=== PATIENT | female | born 2000 | race Caucasian/White ===

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

== ENCOUNTER → 2021-01-15 14:43 | Outpatient (BNVA) | payer MEDICAID, SELFPAY | PROVIDERS: Visit Provider Nurse Practitioner Family | DX: Z20.822 Contact with and (suspected) exposure to COVID-19 (principal) | CPT/HCPCS: 87635 ==

== ENCOUNTER 2025-05-12 08:08 | Emergency (ER) | payer MEDICAID, SELFPAY ==
[2025-05-12 08:15] VITALS: BP 126/61; PULSE 85; RESP 16; TEMP 36.7; O2SAT 100; BMI 24.7
--- OUTSIDE RECORDS SUMMARY | 2025-05-12 08:16 | XMS_ITS | Clinical Summary ---
Author Organization [facility] Address [address] Jeter: Epic Prelude ADT [place] [address] Care Team Providers Care Commercial Installer Name Role Phone Marissa Cespedes Karoline FIGUEREDO Primary Care Provider Allergies No known active allergies Medications desogestreL-ethi nyl estradioL (ORTHO-CEPT) 0.15-0.03 mg Tablet Take 1 Tablet by mouth daily. 10/17/2019 Active ibuprofen (MOTRIN) 200 mg tablet Take 400 mg by mouth every 6 hours as needed for Pain, Mild. 11/08/2019 Active ondansetron (ZOFRAN ODT) 4 mg Tablet, Rapid Dissolve Place 1 Tablet (4 mg) under tongue every 8 hours as needed for Nausea. 16 Tablet 1 11/09/2019 Active HYDROcodone-acet aminophen (HYCET) 7.5-325 mg/15 mL SolutionIndicati ons:Tonsil stone,Sleep-diso rdered breathing,Tonsil lar hypertrophy,Snor ing Take 10-12 mL by mouth every 4 hours as needed for Pain. Max Daily Amount: 72 mL 473 mL 0 11/09/2019 Active multivitamin (DAILY-LUDY) tablet Take 1 Tablet by mouth daily. 09/27/2019 Active Active Problems Problem Noted Date Diagnosed Date Tonsil stone 10/17/2019 Tonsillar hypertrophy 10/17/2019 Sleep-disordered breathing 10/17/2019 Snoring 10/17/2019 Immunizations Immunization Administration Dates Next Due Influenza Seasonal Unspecified Formulation IM Family History Medical History Relation Name Comments Healthy Father Healthy Mother Relation Name Status Comments Father Mother Social History Tobacco Use Types Packs/Day Years Used Date Smoking Tobacco: Passive Smo ke Exposure - Never Smoker Smokeless Tobacco: Never Alcohol Use Standard Drinks/Week Comments No 0 (1 standard drink = 0.6 oz pur e alcohol) Comments Unknown Sex and Gender Information Value Date Recorded Sex Assigned at Not on file Legal Sex Female 1:11 AM [employer] Gender Identity Not on file Sexual Orientation Not on file Last Filed Vital Signs Vital Sign Reading Time Taken Comments Blood Pressure 112/68 11/09/2019 10:00 AM CDT Pulse 77 11/09/2019 10:00 AM CDT Temperature 36.3 C (97.4 F) 11/09/2019 9:26 AM CDT Respiratory Rate 16 11/09/2019 10:00 AM CDT Oxygen Saturation - - Inhaled Oxygen Concentration - - Weight 53.8 kg (118 lb 9.6 oz) 11/09/2019 7:30 A M CDT Height 157.5 cm (5' 2 ) 11/09/2019 7:30 AM CDT Body Mass Index 21.69 11/09/2019 7:30 AM CDT Plan of Treatment Health Maintenance Due Date Last Done Comments CHLAMYDIA SCREENING (ANNUAL) 11-24 YEARS 2012 HPV VACCINES (1 - 3-dose series) 2016 DTAP/TDAP/TD VACCINES (1 - Tdap) 2020 HEPATITIS B VACCINES (1 of 3 - 19+ 3-dose series) 07/16 Preventative Visit-Managed Medicaid 2020 CERVICAL CANCER SCREENING 2022 HPV/Cotest (21-29) 2022 PAP SMEAR 2022 INFLUENZA VACCINE (#1) 2025 04/15/2011 Insurance MEDICAID [place] Care Teams Commercial Installer Relationship Specialty Start Date End Date Marissa Cespedes DO [address] [place] [address] PCP - General Family Practice 11/02/19
--- NOTE | 2025-05-12 08:18 | ED_ITS ---
[facility] - General Adult General: Stated complaint: facial swelling Time Seen by Provider: 05/12/25 08:09 Source: patient Mode of arrival: ambulatory Limitations: no limitations History of Present Illness: 23-year-old female states that she had s ubpar make-up 2 nights ago and since has been having some slight swelling to her face and a rash also had a rash to her chest has been itching. She states she has taken Benadryl denies any improvement she denies any throat swelling denies any shortness of breath denies any worsening factors Related Data Home Medications ?Medication ?Instructions ?Recorded ?Confirmed No Known Home Medications 01/15/21 08/0 09/02 Allergies Allergy/AdvReac Type Severity Reaction Status Date / Time No Known Allergies Allergy Verified 01/15/21 13:35 PFSH ED PFSH: Social History Smoking and tobacco/nicotine status: never used tobacco/nicotine Alcohol intake: never Substance/Drug Use: never Physical Exam Const: COMMON NORMALS: no acute distress, patient oriented x3 and healthy appearing HENMT: COMMON NORMALS: normocephalic and atraumatic HEAD & SCALP: normocephalic and atraumatic THROAT: posterior oropharynx normal Eye: COMMON NORMALS: Equal, round and reactive pupils present and EOMs intact bilaterally PUPIL: Yes Equal, round and reactive pupils present Neck/C-Spine: COMMON NORMALS: full ROM and supple Chest: COMMONS NORMALS: normal inspection of the chest Resp: COMMON NORMALS: normal respiratory effort Cardio: COMMON NORMALS: regular rate RATE: regular rate Extremity: COMMON NORMALS: normal to inspection and full ROM Neuro: COMMON NORMALS: patient oriented x3, moves all extremities and no focal motor deficits Psych: COMMON NORMALS: mental status grossly normal, Normal thought process present and cooperative THOUGHT PROCESS: Normal thought process present Skin: COMMON NORMALS: no wounds NARRATIVE SKIN EXAM: Allergic rash noted to chest some slight swelling to face no major swelling [facility] - General Adult Medical Decision Making Patient presents here with allergic reaction with rash she has no throat swelling no signs anaphylaxis did give her Kenalog Decadron here. She is well-appearing she continue take Benadryl she stable for discharge follow-up PCP return if worsening. Medical Records I reviewed the patient's medical records. No radiology studies performed this visit Discharge Plan Discharge Patient Disposition: Home Clinical Impression: Allergic reaction Condition: Stable Prescriptions: No Action No Known Home Medications Discharge Orders: Discharge ED (Routine); Ordered 05/12/25 Ordered By: Johann Pretty Discharge Diet: Advance as tolerated Discharge Activity: Resume usual activity Patient Instructions: General Allergic Reaction (ED) Print Language: Albanian Coding Level of Care Code ED Internal Medicine Specialist for Kaylan Dooley
[2025-05-12] MEDS: triamcinolone 40 mg/mL SDV 80 MG IM (08:39)
[2025-05-12 08:44] VITALS: BP 114/67; PULSE 81; O2SAT 100
== END 2025-05-12 08:48 | disposition home or self-care (01) ==
PROVIDERS: Emergency Provider Emergency Medicine
DX: T78.40XA Allergy, unspecified, initial encounter (principal); X58.XXXA Exposure to other specified factors, initial encounter
CPT/HCPCS: 96372; 99284; J1100; J3301